=== PATIENT | female | born 2000 | race Caucasian/White ===

== ENCOUNTER 2024-12-10 01:19 | Emergency (ER) | payer OTHER, SELFPAY ==
[2024-12-10] MEDS ORDERED: TUMS500C PO (01:41)
[2024-12-10] MEDS ORDERED: ACET-907 PO (01:41)
[2024-12-10] MEDS ORDERED: PRENTAB9 PO (01:41)
[2024-12-10] MEDS ORDERED: TUMS750C22 PO (01:43)
== END 2024-12-10 01:54 | disposition admitted as inpatient to this hospital (09) ==
LOC: M ED 01:19
DX: Z53.21 Procedure and treatment not carried out due to patient leaving prior to being seen by health care provider (principal)

== ENCOUNTER 2024-12-10 01:27 | Outpatient (CLI) | payer OTHER ==
[~2024-12-10] VITALS: Ht 170.2 cm; Wt 81.4 kg
[2024-12-10] MEDS ORDERED: TUMS500C PO (01:41)
[2024-12-10] MEDS ORDERED: PRENTAB9 PO (01:41)
[2024-12-10] MEDS ORDERED: ACET-907 PO (01:41)
[2024-12-10] MEDS ORDERED: TUMS750C22 PO (01:43)
[2024-12-10] MEDS ORDERED: HOME MED LIST COMPLETE! XX SCH (01:45)
[2024-12-10 01:48] VITALS: BP 105/64; O2SAT 98
[2024-12-10 02:16] LABS: KETONE, URINE AUTO RFX TRACE mg/dL (NEGATIVE); LEUKOCYTE ESTERASE UR AUTO RFX NEGATIVE (NEGATIVE); MUCUS, URINE RFX SMALL (NEGATIVE); NITRITE, URINE AUTO RFX NEGATIVE (NEGATIVE); RBC, URINE AUTO RFX 2 /HPF (0-3); SQUAM EPITHELIAL CELL UR AURFX 0 /HPF (0-6); WBC, URINE AUTO RFX 0 /HPF (0-3)
[2024-12-10 03:30] VITALS: BP 108/60
== END 2024-12-10 03:50 | disposition home or self-care (01) ==
LOC: M LDO 01:27
PROVIDERS: ATTEND Advanced Practice Midwife
DX: O47.03 False labor before 37 completed weeks of gestation, third trimester (principal); Z3A.33 33 weeks gestation of pregnancy
CPT/HCPCS: 59025; 76817; 81001; 87070; 87077; 87186; G0463

== ENCOUNTER → 2025-01-03 | Outpatient (REF) | payer OTHER ==
[~2025-01-03] MED LIST: ACET-907 PO; PRENTAB9 PO; TUMS500C PO; TUMS750C22 PO
== END ==
LOC: M SFHCWAGY 12:49
PROVIDERS: ATTEND Obstetrics & Gynecology
DX: Z36.85 Encounter for antenatal screening for Streptococcus B (principal); Z3A.37 37 weeks gestation of pregnancy